=== PATIENT | male | born 1960 | race Caucasian/White ===

== ENCOUNTER 2016-12-31 13:25 | Outpatient (CLI) | payer MEDICARE ==
--- NOTE | 2016-12-31 14:01 | DIAGNOSTIC IMAGING REPORT ---
PROCEDURE: XR CHEST 2 VIEW INDICATION: POSSIBLE PULM. NODULE TECHNIQUE: PA and lateral view. COMPARISON: None. FINDINGS: Lungs are clear. Cardiovascular structures are normal. Moderate degenerative changes of the spine. IMPRESSION: 1. Negative chest.
== END 2016-12-31 23:00 ==
LOC: XR SRH 13:25
DX: R91.1 Solitary pulmonary nodule (principal)